=== PATIENT | male | born 1940 | race Caucasian/White ===

== ENCOUNTER 2017-05-11 16:33 | Inpatient (IN) | payer MEDICARE ==
[2017-05-11 19:06] LABS: POC GLUCOSE 241 mg/dL (70-99)
[2017-05-11 19:52] LABS: BASO # 0.1 x10^3/uL (0.0-0.2); BASO % 0 % (0-3); EOS # 0.1 x10^3/uL (0.0-0.7); EOS % 0 % (0-3); HEMATOCRIT 45.9 % (39.0-53.0); HEMOGLOBIN 15.6 g/dL (13.0-17.5); LYMPH # 1.8 x10^3/uL (1.0-4.8); LYMPH % 11 % (24-48); MEAN CORPUSCULAR HEMOGLOBIN 31 pg (25-35); MEAN CORPUSCULAR HGB CONC 34 g/dL (31-37); MEAN CORPUSCULAR VOLUME 92 fL (79-100); MONO # 0.6 x10^3/uL (0.0-1.1); MONO % 4 % (0-9); NEUT # 13.2 x10^3uL (1.8-7.7); NEUT % 84 % (31-73); PLATELET COUNT 317 x10^3/uL (140-400); RED CELL DISTRIBUTION WIDTH 14.2 % (11.5-14.5); WHITE BLOOD COUNT 15.7 x10^3/uL (4.0-11.0)
[2017-05-11 19:58] LABS: ADD MAN DIFF? YES
[2017-05-11 20:12] LABS: ALBUMIN 3.2 g/dL (3.4-5.0); ALBUMIN/GLOBULIN RATIO 0.8 (1.0-1.7); ALK PHOS 99 U/L (46-116); ALT (SGPT) 18 U/L (16-63); AST (SGOT) 109 U/L (15-37); BLOOD UREA NITROGEN 21 mg/dL (8-26); BUN/CREATININE RATIO 18 (6-20); CALCIUM 8.1 mg/dL (8.5-10.1); CARBON DIOXIDE 41 mmol/L (21-32); CREATININE 1.2 mg/dL (0.7-1.3); GFR 59.2; GLUCOSE 240 mg/dL (70-99); SODIUM 138 mmol/L (136-145); TOTAL BILIRUBIN 1.9 mg/dL (0.2-1.0); TOTAL PROTEIN 7.4 g/dL (6.4-8.2)
[2017-05-11 20:17] LABS: ANION GAP 7 (6-14); CHLORIDE 90 mmol/L (98-107)
[2017-05-11 20:20] LABS: POTASSIUM 1.9 mmol/L (3.5-5.1)
[2017-05-11 20:21] LABS: % ATYL 3 % (0-0); % BANDS 7 % (0-9); % LYMPHS 8 % (24-48); % MONOS 4 % (0-10); % SEGS 78 % (35-66); PLT ESTIMATE ADEQUATE (ADEQUATE)
[2017-05-11] MEDS ORDERED: POTASSIUM CHLORIDE 20MEQ 50 ML IV (20:30)
[2017-05-11 20:38] LABS: TROPONINI < 0.017 ng/mL (0.000-0.055)
[2017-05-11 20:42] LABS: MAGNESIUM 2.3 mg/dL (1.8-2.4)
[2017-05-11] MEDS: POTASSIUM CHLORIDE 20 MEQ TABLET.ER. PO ×2 (20:49)
[2017-05-11 20:58] LABS: BILIRUBIN,URINE SMALL (NEG); CLARITY,URINE CLEAR; COLOR,URINE AMBER; GLUCOSE,URINE >=1000 mg/dL (NEG); NITRITE,URINE NEGATIVE (NEG); PROTEIN,URINE 100 mg/dL (NEG-TRACE)
[2017-05-11 21:06] LABS: AMORPHOUS SEDIMENT,UR PRESENT /HPF; BACTERIA,URINE 0 /HPF (0-FEW); SQUAMOUS EPITHELIAL CELL,UR FEW /LPF
[2017-05-11] MEDS: POTASSIUM CHLORIDE 20 MEQ IV (21:13)
[2017-05-11] MEDS: [UNRECOGNIZED DRUG - OTHER] IV (21:13)
[2017-05-11] MEDS: DEXTROSE IV (21:13)
[2017-05-11] MEDS ORDERED: ONDANSETRON PF 4 MG/2 ML VIAL. IV (21:15)
[2017-05-12] MEDS: POTASSIUM CHLORIDE 20 MEQ TABLET.ER. PO ×3 (02:19→12:00)
[2017-05-12 06:46] LABS: ANION GAP 8 (6-14); BLOOD UREA NITROGEN 19 mg/dL (8-26); CALCIUM 7.9 mg/dL (8.5-10.1); CARBON DIOXIDE 42 mmol/L (21-32); CHLORIDE 93 mmol/L (98-107); CREATININE 1.2 mg/dL (0.7-1.3); GFR 59.2; GLUCOSE 229 mg/dL (70-99); SODIUM 143 mmol/L (136-145)
[2017-05-12 06:52] LABS: POTASSIUM 1.8 mmol/L (3.5-5.1)
[2017-05-12 07:03] LABS: POC GLUCOSE 204 mg/dL (70-99)
[2017-05-12] MEDS ORDERED: ONDANSETRON PF 4 MG/2 ML VIAL. IV (09:45)
[2017-05-12] MEDS ORDERED: DEXTROSE 50% 25 GM / 50ML DISP.SYRIN. IV (09:45)
[2017-05-12] MEDS: QUEtiapine 25 MG TABLET. PO (10:10)
[2017-05-12] MEDS: DONEPEZIL HCL 10 MG TABLET. PO (10:10)
[2017-05-12 11:36] LABS: POC GLUCOSE 240 mg/dL (70-99)
[2017-05-12] MEDS: INSULIN ASPART 300 UNITS/3 ML INSULN.PEN SQ ×2 (11:37→17:00)
[2017-05-12 13:12] LABS: ANION GAP 6 (6-14); BLOOD UREA NITROGEN 19 mg/dL (8-26); CALCIUM 7.7 mg/dL (8.5-10.1); CARBON DIOXIDE 43 mmol/L (21-32); CHLORIDE 94 mmol/L (98-107); CREATININE 1.1 mg/dL (0.7-1.3); GFR 65.4; GLUCOSE 104 mg/dL (70-99); SODIUM 143 mmol/L (136-145)
[2017-05-12 13:14] LABS: POTASSIUM 1.9 mmol/L (3.5-5.1)
[2017-05-12 14:11] LABS: INFLUENZA A PATIENT NEGATIVE (NEGATIVE); INFLUENZA B PATIENT NEGATIVE (NEGATIVE); OBC FLU VALID
[2017-05-12 14:49] LABS: SEDIMENTATION RATE 20 (0-15)
[2017-05-12] MEDS: AMINO AC 3%/ELECTROLYTE/GLYCER 1,000 ML IV (16:12)
[2017-05-12] MEDS: POTASSIUM CL 40MEQ IN 0.9%NACL 1,000 ML IV (16:12)
[2017-05-12] MEDS: INSULIN DETEMIR 300 UNITS/3 ML INSULN.PEN. SQ (16:18)
[2017-05-12 16:52] LABS: POC GLUCOSE 153 mg/dL (70-99)
[2017-05-12] MEDS: ACETAMINOPHEN 325 MG TABLET. PO (20:31)
[2017-05-12] MEDS: LORazepam 1 MG TABLET PO (20:31)
[2017-05-12] MEDS: diphenhydrAMINE HCL 25 MG CAPSULE PO (23:29)
[2017-05-13] MEDS: AMINO AC 3%/ELECTROLYTE/GLYCER 1,000 ML IV ×3 (02:04→18:30)
[2017-05-13] MEDS: POTASSIUM CL 40MEQ IN 0.9%NACL 1,000 ML IV ×2 (02:04→13:24)
[2017-05-13 03:09] LABS: POC GLUCOSE 138 mg/dL (70-99)
[2017-05-13 06:54] LABS: ADD MAN DIFF? NO
[2017-05-13 06:58] LABS: BASO % 0 % (0-3); EOS # 0.2 x10^3/uL (0.0-0.7); EOS % 2 % (0-3); HEMATOCRIT 39.6 % (39.0-53.0); HEMOGLOBIN 13.2 g/dL (13.0-17.5); LYMPH # 2.7 x10^3/uL (1.0-4.8); LYMPH % 21 % (24-48); MEAN CORPUSCULAR HEMOGLOBIN 31 pg (25-35); MEAN CORPUSCULAR HGB CONC 34 g/dL (31-37); MEAN CORPUSCULAR VOLUME 92 fL (79-100); MONO # 0.7 x10^3/uL (0.0-1.1); MONO % 5 % (0-9); NEUT # 9.3 x10^3uL (1.8-7.7); NEUT % 72 % (31-73); PLATELET COUNT 280 x10^3/uL (140-400); RED BLOOD COUNT 4.28 x10^6/uL (4.30-5.70); RED CELL DISTRIBUTION WIDTH 14.1 % (11.5-14.5)
[2017-05-13 07:26] LABS: PHOSPHORUS 2.6 mg/dL (2.6-4.7)
[2017-05-13] MEDS: INSULIN ASPART 300 UNITS/3 ML INSULN.PEN SQ ×3 (07:29→17:00)
[2017-05-13 07:34] LABS: ANION GAP 7 (6-14); BLOOD UREA NITROGEN 15 mg/dL (8-26); CALCIUM 7.4 mg/dL (8.5-10.1); CARBON DIOXIDE 38 mmol/L (21-32); CHLORIDE 98 mmol/L (98-107); GLUCOSE 104 mg/dL (70-99); SODIUM 143 mmol/L (136-145)
[2017-05-13 07:40] LABS: POTASSIUM 2.2 mmol/L (3.5-5.1)
[2017-05-13] MEDS: DONEPEZIL HCL 10 MG TABLET. PO (08:27)
[2017-05-13] MEDS: POTASSIUM CHLORIDE 20MEQ 50 ML IV ×7 (08:31→22:50)
[2017-05-13] MEDS: CALCIUM GLUCONATE 1,000 MG/10 ML VIAL. IVP (10:03)
[2017-05-13 10:05] LABS: POC GLUCOSE 113 mg/dL (70-99)
[2017-05-13] MEDS: LORazepam 1 MG TABLET PO (11:08)
[2017-05-13] MEDS: ALTEPLASE 2 MG VIAL INT CAT ×2 (11:58→13:44)
[2017-05-13 12:22] LABS: POC GLUCOSE 148 mg/dL (70-99)
[2017-05-13 16:47] LABS: POC GLUCOSE 144 mg/dL (70-99)
[2017-05-13 18:43] LABS: POTASSIUM 2.7 mmol/L (3.5-5.1)
[2017-05-13 20:29] LABS: POC GLUCOSE 152 mg/dL (70-99)
[2017-05-14] MEDS: POTASSIUM CL 40MEQ IN 0.9%NACL 1,000 ML IV ×2 (03:48→15:48)
[2017-05-14] MEDS: AMINO AC 3%/ELECTROLYTE/GLYCER 1,000 ML IV (06:25)
[2017-05-14 07:16] LABS: POC GLUCOSE 154 mg/dL (70-99)
[2017-05-14] MEDS: INSULIN ASPART 300 UNITS/3 ML INSULN.PEN SQ ×3 (08:00→16:54)
[2017-05-14 08:04] LABS: MAGNESIUM 1.9 mg/dL (1.8-2.4)
[2017-05-14 08:07] LABS: ANION GAP 8 (6-14); BLOOD UREA NITROGEN 11 mg/dL (8-26); CALCIUM 7.9 mg/dL (8.5-10.1); CARBON DIOXIDE 29 mmol/L (21-32); CHLORIDE 102 mmol/L (98-107); CREATININE 0.8 mg/dL (0.7-1.3); GFR 94.5; GLUCOSE 160 mg/dL (70-99); POTASSIUM 3.3 mmol/L (3.5-5.1); SODIUM 139 mmol/L (136-145)
[2017-05-14] MEDS: LORazepam 1 MG TABLET PO (08:07)
[2017-05-14] MEDS: DONEPEZIL HCL 10 MG TABLET. PO (08:07)
[2017-05-14 16:32] LABS: POC GLUCOSE 136 mg/dL (70-99)
[2017-05-14] MEDS ORDERED: LORazepam 0.5 MG TABLET PO (18:15)
[2017-05-14] MEDS: DIVALPROEX DELAYED RELEASE 250 MG TABLET.DR. PO (20:55)
[2017-05-14] MEDS: CALCIUM CARB/VIT D3 500/200 TABLET. PO (20:55)
[2017-05-14] MEDS: HALOPERIDOL LACTATE 5 MG/ML VIAL. IVP (21:08)
[2017-05-14 21:13] LABS: POC GLUCOSE 149 mg/dL (70-99)
[2017-05-15] MEDS: POTASSIUM CL 40MEQ IN 0.9%NACL 1,000 ML IV ×2 (01:57→15:34)
[2017-05-15] MEDS: AMINO AC 3%/ELECTROLYTE/GLYCER 1,000 ML IV ×2 (03:49→15:33)
[2017-05-15 04:19] LABS: ADD MAN DIFF? NO
[2017-05-15 04:29] LABS: BASO # 0.1 x10^3/uL (0.0-0.2); BASO % 0 % (0-3); EOS # 0.2 x10^3/uL (0.0-0.7); EOS % 2 % (0-3); HEMATOCRIT 37.4 % (39.0-53.0); HEMOGLOBIN 12.5 g/dL (13.0-17.5); LYMPH # 2.2 x10^3/uL (1.0-4.8); LYMPH % 18 % (24-48); MEAN CORPUSCULAR HEMOGLOBIN 31 pg (25-35); MEAN CORPUSCULAR HGB CONC 33 g/dL (31-37); MEAN CORPUSCULAR VOLUME 92 fL (79-100); MONO # 0.7 x10^3/uL (0.0-1.1); MONO % 6 % (0-9); NEUT # 9.2 x10^3uL (1.8-7.7); NEUT % 75 % (31-73); PLATELET COUNT 252 x10^3/uL (140-400); RED BLOOD COUNT 4.07 x10^6/uL (4.30-5.70); RED CELL DISTRIBUTION WIDTH 13.6 % (11.5-14.5); WHITE BLOOD COUNT 12.3 x10^3/uL (4.0-11.0)
[2017-05-15 04:42] LABS: ALBUMIN 2.6 g/dL (3.4-5.0); ALBUMIN/GLOBULIN RATIO 0.7 (1.0-1.7); ALK PHOS 83 U/L (46-116); ALT (SGPT) 17 U/L (16-63); ANION GAP 9 (6-14); AST (SGOT) 57 U/L (15-37); BLOOD UREA NITROGEN 11 mg/dL (8-26); BUN/CREATININE RATIO 16 (6-20); CARBON DIOXIDE 25 mmol/L (21-32); CHLORIDE 103 mmol/L (98-107); CREATININE 0.7 mg/dL (0.7-1.3); GFR 110.2; GLUCOSE 156 mg/dL (70-99); POTASSIUM 4.2 mmol/L (3.5-5.1); SODIUM 137 mmol/L (136-145); TOTAL PROTEIN 6.2 g/dL (6.4-8.2)
[2017-05-15 07:56] LABS: POC GLUCOSE 149 mg/dL (70-99)
[2017-05-15] MEDS: INSULIN ASPART 300 UNITS/3 ML INSULN.PEN SQ ×3 (07:59→16:59)
[2017-05-15] MEDS: DONEPEZIL HCL 10 MG TABLET. PO (08:15)
[2017-05-15] MEDS: CALCIUM CARB/VIT D3 500/200 TABLET. PO ×2 (08:15→17:18)
[2017-05-15 11:27] LABS: POC GLUCOSE 146 mg/dL (70-99)
[2017-05-15 16:45] LABS: POC GLUCOSE 169 mg/dL (70-99)
[2017-05-15] MEDS: diphenhydrAMINE HCL 25 MG CAPSULE PO (20:02)
[2017-05-15] MEDS: DIVALPROEX DELAYED RELEASE 250 MG TABLET.DR. PO (20:02)
[2017-05-15 20:58] LABS: POC GLUCOSE 171 mg/dL (70-99)
[2017-05-16] MEDS: AMINO AC 3%/ELECTROLYTE/GLYCER 1,000 ML IV ×2 (02:30→21:35)
[2017-05-16 05:30] LABS: ADD MAN DIFF? NO
[2017-05-16 05:40] LABS: BASO # 0.1 x10^3/uL (0.0-0.2); BASO % 0 % (0-3); EOS # 0.3 x10^3/uL (0.0-0.7); EOS % 2 % (0-3); HEMATOCRIT 39.2 % (39.0-53.0); HEMOGLOBIN 13.2 g/dL (13.0-17.5); LYMPH # 3.2 x10^3/uL (1.0-4.8); LYMPH % 25 % (24-48); MEAN CORPUSCULAR HEMOGLOBIN 31 pg (25-35); MEAN CORPUSCULAR HGB CONC 34 g/dL (31-37); MEAN CORPUSCULAR VOLUME 92 fL (79-100); MONO # 0.8 x10^3/uL (0.0-1.1); MONO % 7 % (0-9); NEUT # 8.1 x10^3uL (1.8-7.7); NEUT % 65 % (31-73); PLATELET COUNT 279 x10^3/uL (140-400); RED BLOOD COUNT 4.28 x10^6/uL (4.30-5.70); RED CELL DISTRIBUTION WIDTH 14.1 % (11.5-14.5); WHITE BLOOD COUNT 12.4 x10^3/uL (4.0-11.0)
[2017-05-16 06:00] LABS: ANION GAP 10 (6-14); BLOOD UREA NITROGEN 14 mg/dL (8-26); CARBON DIOXIDE 24 mmol/L (21-32); CHLORIDE 99 mmol/L (98-107); CREATININE 0.7 mg/dL (0.7-1.3); GFR 110.2; GLUCOSE 158 mg/dL (70-99); SODIUM 133 mmol/L (136-145)
[2017-05-16] MEDS: INSULIN ASPART 300 UNITS/3 ML INSULN.PEN SQ ×3 (08:00→17:22)
[2017-05-16 08:02] LABS: POC GLUCOSE 155 mg/dL (70-99)
[2017-05-16] MEDS: CALCIUM CARB/VIT D3 500/200 TABLET. PO ×2 (08:24→17:16)
[2017-05-16] MEDS: DONEPEZIL HCL 10 MG TABLET. PO ×2 (08:24→21:23)
[2017-05-16 11:13] LABS: POC GLUCOSE 172 mg/dL (70-99)
[2017-05-16 11:18] LABS: VITAMIN-B12 293 pg/mL (247-911)
[2017-05-16] MEDS: HALOPERIDOL LACTATE 5 MG/ML VIAL. IVP (11:18)
[2017-05-16] MEDS: ERGOCALCIFEROL (VITAMIN D2) 50,000 UNIT CAPSULE. PO (11:54)
[2017-05-16] MEDS: DRONABINOL 2.5 MG CAPSULE. PO (11:54)
[2017-05-16 14:34] LABS: THYROID STIM HORMONE (TSH) 2.217 uIU/mL (0.358-3.74)
[2017-05-16 16:20] LABS: POC GLUCOSE 159 mg/dL (70-99)
[2017-05-16] MEDS: DIVALPROEX DELAYED RELEASE 250 MG TABLET.DR. PO (21:22)
[2017-05-16] MEDS: diphenhydrAMINE HCL 25 MG CAPSULE PO (21:23)
[2017-05-17] MEDS: INSULIN ASPART 300 UNITS/3 ML INSULN.PEN SQ ×3 (08:00→17:00)
[2017-05-17 08:25] LABS: POC GLUCOSE 144 mg/dL (70-99)
[2017-05-17] MEDS: CALCIUM CARB/VIT D3 500/200 TABLET. PO ×2 (10:19→18:09)
[2017-05-17 12:17] LABS: POC GLUCOSE 214 mg/dL (70-99)
[2017-05-17] MEDS ORDERED: DIPHENHYDRAMINE/ZINC ACETATE 2%/0.1% TOPICAL CREAM 28GM TUBE. TP (15:00)
[2017-05-17] MEDS ORDERED: HYDROCORTISONE 1% TOPICAL OINTMENT 30GM TUBE. TP (18:15)
[2017-05-17] MEDS: diphenhydrAMINE HCL 25 MG CAPSULE PO (20:38)
[2017-05-17] MEDS: HALOPERIDOL LACTATE 5 MG/ML VIAL. IVP (20:38)
[2017-05-17] MEDS: DONEPEZIL HCL 10 MG TABLET. PO (20:38)
[2017-05-17] MEDS: DIVALPROEX DELAYED RELEASE 250 MG TABLET.DR. PO (20:38)
[2017-05-17 20:42] LABS: POC GLUCOSE 165 mg/dL (70-99)
[2017-05-17 21:28] LABS: POC GLUCOSE 162 mg/dL (70-99)
[2017-05-17 23:30] LABS: POC GLUCOSE 134 mg/dL (70-99)
[2017-05-18] MEDS: AMINO AC 3%/ELECTROLYTE/GLYCER 1,000 ML IV (05:25)
[2017-05-18 07:20] LABS: POC GLUCOSE 144 mg/dL (70-99)
[2017-05-18] MEDS ORDERED: HALOPERIDOL 2 MG TABLET. PO (07:30)
[2017-05-18] MEDS: INSULIN ASPART 300 UNITS/3 ML INSULN.PEN SQ ×3 (08:00→17:47)
[2017-05-18] MEDS: CALCIUM CARB/VIT D3 500/200 TABLET. PO ×2 (09:20→17:40)
[2017-05-18 11:12] LABS: POC GLUCOSE 145 mg/dL (70-99)
[2017-05-18 16:35] LABS: POC GLUCOSE 224 mg/dL (70-99)
[2017-05-18] MEDS: ALPRAZolam 0.5 MG TABLET PO (20:49)
[2017-05-18] MEDS: DONEPEZIL HCL 10 MG TABLET. PO (20:49)
[2017-05-18] MEDS: DIVALPROEX DELAYED RELEASE 250 MG TABLET.DR. PO (20:49)
[2017-05-19] MEDS: INSULIN ASPART 300 UNITS/3 ML INSULN.PEN SQ ×2 (08:00→12:00)
[2017-05-19 08:03] LABS: POC GLUCOSE 136 mg/dL (70-99)
[2017-05-19] MEDS: CALCIUM CARB/VIT D3 500/200 TABLET. PO (08:27)
[2017-05-19 11:34] LABS: POC GLUCOSE 175 mg/dL (70-99)
== END 2017-05-19 15:30 | DRG 682 ==
LOC: ER 16:33 → 5 NORTH 05-12 23:00
PROVIDERS: Internal Medicine
PROC: 02HV33Z Insertion of Infusion Device into Superior Vena Cava, Percutaneous Approach (ICD-10-PCS; principal; 2017-05-12)
DX: N17.0 Acute kidney failure with tubular necrosis (principal); G93.41 Metabolic encephalopathy; E46 Unspecified protein-calorie malnutrition; E87.3 Alkalosis; E11.22 Type 2 diabetes mellitus with diabetic chronic kidney disease; E87.6 Hypokalemia; E11.51 Type 2 diabetes mellitus with diabetic peripheral angiopathy without gangrene; E11.65 Type 2 diabetes mellitus with hyperglycemia; E55.9 Vitamin D deficiency, unspecified; E78.00 Pure hypercholesterolemia, unspecified; E78.5 Hyperlipidemia, unspecified; E86.0 Dehydration; F03.90 Unspecified dementia, unspecified severity, without behavioral disturbance, psychotic disturbance, mood disturbance, and anxiety; I12.9 Hypertensive chronic kidney disease with stage 1 through stage 4 chronic kidney disease, or unspecified chronic kidney disease; N18.2 Chronic kidney disease, stage 2 (mild); Z90.49 Acquired absence of other specified parts of digestive tract; Z88.5 Allergy status to narcotic agent; Z88.7 Allergy status to serum and vaccine; Z91.040 Latex allergy status; Z68.21 Body mass index [BMI] 21.0-21.9, adult
CPT/HCPCS: 36415; 36569; 70450; 70551; 71045; 72125; 80048; 80053; 81001; 82306; 82607; 82962; 83735; 84100; 84132; 84443; 84484; 85007; 85025; 85651; 87804; 87804-59; 92526-GN; 92610-GN; 93005; 95816; 96361; 96372; 96374; 97110-GO; 97110-GP; 97116-GP; 97161-GP; 97166-GO; 97530-GP; 99285; 99285-25; J0610; J1630; J1815; J2060; J2997; J3480; Q0163; Q0167